=== PATIENT | male | born 1975 | race African-American/Black ===

== ENCOUNTER 2019-06-13 14:02 | Emergency (ER) | payer MEDICARE, MEDICAID ==
[~2019-06-13] VITALS: Ht 177.8 cm; Wt 136.1 kg
[2019-06-13 14:10] VITALS: BP_SYST 143
--- NOTE | 2019-06-13 19:55 | NUR ---
Note marta in EDM - 06/13/19 at 1959 by [email or web address] Patient to ER H2 for evaluation. Side rails up.
--- NOTE | 2019-06-13 19:57 | NUR ---
Patient to ER bed H2 to gown for evaluation. Side rails up.
--- NOTE | 2019-06-13 19:59 | NUR ---
Silvana Joyce MANAGER [employer] at bedside examining patient at this time.
--- NOTE | 2019-06-13 20:00 | NUR ---
Pt C/O chronic intermittent R leg pain. Pt denies any recent trauma, swelling, redness to the area. Pt is able to ambulate without assistance. Will continue to monitor.
--- NOTE | 2019-06-13 20:13 | NUR ---
Patient given written and verbal discharge instructions and verbalizes understanding. ER MD discussed with patient the results and treatment provided. Patient in stable condition. ID arm band removed. Rx of Naproxen given. Patient educated on pain management and to follow up with PMD. Pain Scale 0. Opportunity for questions provided and answered. Medication side effect fact sheet provided.
[2019-06-13 20:18] VITALS: BP_SYST 143
== END 2019-06-13 20:13 | disposition home or self-care (01) ==
LOC: SED 14:02
DX: S76.911A Strain of unspecified muscles, fascia and tendons at thigh level, right thigh, initial encounter (principal); X50.3XXA Overexertion from repetitive movements, initial encounter; Y93.01 Activity, walking, marching and hiking; Y92.89 Other specified places as the place of occurrence of the external cause; Y99.8 Other external cause status
CPT/HCPCS: 99283